=== PATIENT | male | born 1995 | race Caucasian/White ===

== ENCOUNTER 2017-04-29 03:17 | Emergency (ER) | payer MEDICAID ==
[~2017-04-29] VITALS: Ht 175.3 cm; Wt 93.2 kg
[2017-04-29 07:56] VITALS: BP 120/64
== END 2017-04-29 08:03 | disposition home or self-care (01) ==
LOC: EMS 03:18
DX: F10.129 Alcohol abuse with intoxication, unspecified (principal); Y90.5 Blood alcohol level of 100-119 mg/100 ml
CPT/HCPCS: 36415; 80307; 99284; G0480

== ENCOUNTER 2017-11-19 09:47 | Emergency (ER) | payer MEDICAID, OTHER ==
[~2017-11-19] VITALS: Ht 175.3 cm; Wt 95.5 kg
[2017-11-19] MEDS ORDERED: IBUPROFEN 600 MG TABLET PO ONE (10:30)
[2017-11-19] MEDS ORDERED: PERTUSS(ACELL),DIPH,TET VAC/PF 0.5 ML VIAL IM ONE (10:30)
[2017-11-19] MEDS ORDERED: ACETAMINOPHEN 500 MG TABLET PO ONE (10:30)
[2017-11-19 12:12] VITALS: BP 110/64
== END 2017-11-19 12:47 | disposition home or self-care (01) ==
LOC: EMS 09:48
DX: S91.332A Puncture wound without foreign body, left foot, initial encounter (principal); W22.8XXA Striking against or struck by other objects, initial encounter; Y93.89 Activity, other specified; Y92.89 Other specified places as the place of occurrence of the external cause; Y99.8 Other external cause status
CPT/HCPCS: 90471; 90715; 99284

== ENCOUNTER 2017-11-24 13:18 | Emergency (ER) | payer OTHER ==
[~2017-11-24] VITALS: Ht 175.3 cm; Wt 100.0 kg
[2017-11-24] MEDS ORDERED: ANTIBIOT PO (13:24)
[2017-11-24] MEDS ORDERED: POVIDONE-IODINE 10% 15 ML SOLUTION UD TP ONE (14:45)
[2017-11-24] MEDS ORDERED: IBUPROFEN 600 MG TABLET PO ONE (15:00)
[2017-11-24] MEDS ORDERED: CIPR-245 PO (15:00)
[2017-11-24 15:18] VITALS: BP 132/76
== END 2017-11-24 15:20 | disposition home or self-care (01) ==
LOC: EMS 13:24
DX: Z48.00 Encounter for change or removal of nonsurgical wound dressing (principal)
CPT/HCPCS: 99283